=== PATIENT | female | born 1995 | race American Indian/Alaskan Native ===

== ENCOUNTER 2019-05-19 19:51 | Inpatient (IN) | payer MEDICAID ==
[2019-05-20] MEDS ORDERED: XYLOCAINE 2% INFILTRATI ONE (00:33)
[2019-05-20] MEDS ORDERED: BRETHINE SUB-Q PRN (00:33)
[2019-05-20] MEDS ORDERED: SUBLIMAZE IV PRN (00:33)
[2019-05-20] MEDS ORDERED: AMPICILLIN/NS 2 GM/100 ML 2 GM/100 ML BAG IV ONE ×2 (00:37→09:30)
--- NOTE | 2019-05-20 00:51 | History and Physical Report ---
History of Present Illness Date of examination: 05/20/19 Date of admission: 05/19/19 19:51 Chief complaint: Here for induction of labor. History of present illness: 24 year old presents for scheduled induction of labor due to class 3 obesity. Patient reports active movement. She denies leaking of fluid or vaginal bleeding. Patient received care at [facility]. records are not available. LMP 08/14/18. EDC 05/21/19. significant for the following: morbid obesity (comanaged with [facility]). labs are not available. These have been redrawn upon admission. Past History Past Medical History: other (obesity) Past Surgical History: no surgical history [employer] History: denies: abnormal PAP smear, chlamydia, fibroids, gonorrhea, hepatitis B, hepatitis C, HIV, syphilis, trichomonas Family/Genetic History: diabetes, hypertension Social history: single, lives with family, full code. denies: smoking, alcohol abuse, prescription drug abuse, IV drug use - Obstetrical History Expected Date of Delivery: 05/21/19 Actual Gestation: 39 Week(s) 6 Day(s) : 1 Para: 0 Hx # Term Pregnancies: 1 Number of Pregnancies: 0 Spontaneous Abortions: 0 Induced : 0 Number of Living Children: 0 Medications and Allergies Allergies Allergy/AdvReac Type Severity Reaction Status Date / Time No Known Allergies Allergy Unverified 05/20/19 00:59 Active Meds: Active Medications Ephedrine Sulfate (Ephedrine Sulfate) 10 mg IV Q2M PRN PRN Reason: Hypotension Fentanyl (Sublimaze) 100 mcg IV Q2H PRN PRN Reason: Labor Pain Oxytocin/Sodium Chloride (Pitocin/Ns 20 Unit/1000ml Drip) 20 units in 1,000 mls @ 125 mls/hr IV DIRECT MAUDE Lactated Ringer's (Lactated Ringers) 1,000 mls @ 125 mls/hr IV DIRECT MAUDE Ampicillin Sodium (Ampicillin/Ns 2 Gm/100 Ml) 2 gm in 100 mls @ 100 mls/hr IV ONCE ONE; Protocol Stop: 05/20/19 01:36 Ampicillin Sodium (Ampicillin/Ns 1 Gm/50 Ml) 1 gm in 50 mls @ 100 mls/hr IV Q4HR MAUDE; Protocol Lidocaine (Xylocaine 2%) 20 ml INFILTRATI ONCE ONE Stop: 05/20/19 00:34 Terbutaline Sulfate (Brethine) 0.25 mg SUB-Q ONCE PRN PRN Reason: Hyperstimulation/Hypertonicity Review of Systems Eyes: no blurred vision Ears, nose, mouth and throat: no headache Cardiovascular: no edema, no shortness of breath Integumentary: no pruritis, no sores, no lesions Endocrine: no polyphagia, no deepening of the voice - Vital Signs Vital signs: Vital Signs Pulse BP 113 H 131/67 05/19/19 20:42 05/19/19 20:42 Temp Pulse Resp BP Pulse Ox 99.1 F 113 H 16 131/67 05/19/19 21:56 05/19/19 21:56 05/19/19 21:56 05/19/19 21:56 - Physical Exam Cardiovascular: Regular rate, Normal S1, Normal S2 Lungs: Positive: Clear to auscultation Abdomen: Positive: normal appearance, soft. Negative: distention, tenderness, guarding, rigidity Genitourinary (Female): Positive: normal external genitalia, normal perenium. Negative: perineal/vulvar lesions Uterus: Positive: enlarged Anus/Rectum: Positive: normal perianal skin Extremities: Positive: normal, tenderness, edema - Obstetrical FHR: category 1 Uterine Contraction Monitor Mode: External Cervical Dilatation: 0.5 Cervical Effacement Percentage: 30 station: -4 Uterine Contraction Pattern: Absent Results All other labs normal. Assessment and Plan A: at 39 weeks, 6 days gestation. Class 3 obesity. GBS unknown. No labs available. P: Admit. Cervidil cervical ripening, followed by Pitocin induction of labor. GBS prophylaxis. EFM. Obtain records. Redraw labs. Discussed with patient risks and benefits of Cervidil cervical ripening and Pitocin induction of labor. Patient consented to Cervidil cervical ripening and Pitocin induction of labor.
[2019-05-20] MEDS ORDERED: PITOCin/NS 20 UNIT/1000ML DRIP 20 UNITS/1,000 ML BAG IV SCH (01:00)
[2019-05-20] MEDS ORDERED: CERVIDIL VG ONE ×2 (01:22→18:24)
--- NOTE | 2019-05-20 01:38 | Ultrasound Report ---
US OB follow up INDICATION / CLINICAL INFORMATION: EDC, EGA, EFW, presentation, location of placenta. COMPARISON: None available. FINDINGS: Viable single intrauterine gestation in the cephalic presentation. heart rate 135 bpm The grade 1 placenta is anterior and free of the os. ABBY is 11. measurements: BPD 9.2 equal to 37 weeks 1 day Head circumference 34 equal to 39 weeks 1 day Abdominal circumference 33 equal to 37 weeks 0 day Femur length 7.5 equals to 38 weeks 3 days Estimated body weight 3244 g. IMPRESSION: 1. Viable 3244 g 38 week fetus. Signer Name: Gary Friend MD Signed: 05/20/2019 1:34 AM Workstation Name: [id number]
[2019-05-20 02:15] LABS: Hematocrit 28.7 % (30.3-42.9); Hemoglobin 9.3 gm/dl (10.1-14.3); Mean Corpuscular HGB Conc 33 % (30-34); Mean Corpuscular Volume 77 fl (79-97); Platelet Count 281 K/mm3 (140-440); Red Blood Count 3.73 M/mm3 (3.65-5.03); Red Cell Distribution Width 16.6 % (13.2-15.2)
[2019-05-20 02:47] LABS: Hepatitis C Virus Antibody Non-Reactive (NonReactive)
--- NOTE | 2019-05-20 04:07 | Event Note ---
Date: 05/20/19 Cervidil 10 mg vaginal insert placed in posterior fornix of vagina.
[2019-05-20] MEDS ORDERED: AMPICILLIN/NS 1 GM/50 ML 1 GM/50 ML BAG IV SCH (04:42)
[2019-05-20] MEDS: LACTATED RINGERS 1,000 ML IV SCH (09:32)
[2019-05-20] MEDS: AMPICILLIN/NS 1 GM/50 ML 1 GM/50 ML BAG IV SCH (15:05)
--- NOTE | 2019-05-20 16:25 | Event Note ---
Cervidil removed from vagina at 16:00. Plan to [address] another cervidil this evening. Cervix FT/thick/high/soft.
--- NOTE | 2019-05-21 08:39 | Progress Note ---
Assessment and Plan A: at 40 weeks gestation. Class 3 obesity. GBS unknown. P: Cervidil was removed from posterior fornix of vagina at 08:30 today. Plan is to start Pitocin in a few hours for induction of labor. Patient has been informed of risks and benefits of Pitocin induction of labor and she has consented to Pitocin induction of labor. GBS prophylaxis. Continuous EFM. Subjective - Subjective Date of service: 05/21/19 Principal diagnosis: at 40 weeks gestation; class 3 obesity Interval history: Labor is being induced due to class 3 obesity. Today patient is 40 weeks gestation. Cervidil removed from posterior fornix of vagina at 08:30. Patient denies vaginal bleeding or leaking of fluid. Patient reports: movement normal, contractions (patient reports irregular mild contractions), no new complaints, no loss of fluid, no vaginal bleeding Objective - Vital Signs Vital Signs: Vital Signs - 12hr 05/20/19 05/20/19 21:25 22:42 Temperature 98.2 F Pulse Rate 102 H Blood Pressure 126/68 - Exam Abdomen: Present: normal appearance, soft. Absent: distention, tenderness, guarding, rigidity Uterus: Present: normal, fundal height above umbilicus. Absent: tenderness FHR: category 1 Uterine Contraction Monitor Mode: External Cervical Dilatation: 1.5 Cervical Effacement Percentage: 50 station: -4 Uterine Contraction Pattern: Irregular Uterine Contraction Intensity: Mild Extremities: normal - Labs Labs: Abnormal Labs 05/20/19 01:34 Hgb 9.3 L Hct 28.7 L MCV 77 L MCH 25 L RDW 16.6 H Laboratory Results - last 24 hr 05/20/19 01:34 RPR Nonreactive
[2019-05-21] MEDS ORDERED: PITOCin/NS 30 UNIT/500ML 30 UNITS/500 ML BAG IV SCH (11:30)
--- NOTE | 2019-05-21 19:36 | Event Note ---
Date: 05/21/19 SVE .
[2019-05-22] MEDS: AMPICILLIN/NS 1 GM/50 ML 1 GM/50 ML BAG IV SCH ×2 (02:00→09:47)
--- NOTE | 2019-05-22 13:44 | Progress Note ---
Assessment and Plan - Patient Problems (1) 40 weeks gestation of Onset Date: 05/22/19 Current Visit: Yes Status: Acute Plan to address problem: A: IUP @ 40 1/7 weeks Morbid Obesity P: Continue with pitocin induction of labor (2) Morbid obesity with BMI of 50.0-59.9, adult Onset Date: 05/22/19 Current Visit: Yes Status: Acute Subjective - Subjective Date of service: 05/22/19 Principal diagnosis: IUP @ 40 1/7 weeks; Morbid obesity Interval history: Pt is a 24yo BF EDC 05/21/19; EGA 40 1/7 presented for induction of labor - currently on Day 3. She received cervidil and low dose pitocin and is now dilated 3cm. records are available and GBS is Negative. Patient reports: movement normal, contractions (patient reports irregular mild contractions), no new complaints, no loss of fluid, no vaginal bleeding Objective - Vital Signs Vital Signs: Vital Signs - 12hr 05/22/19 05/22/19 04:50 07:40 Temperature 98.8 F Pulse Rate 86 88 Respiratory 18 Rate Blood Pressure 117/77 116/74 - Exam Abdomen: Present: normal appearance, soft Uterus: Present: normal FHR: category 1 Uterine Contraction Monitor Mode: External Cervical Dilatation: 3 (per nurse) Cervical Effacement Percentage: 50 (per nurse) station: -3 Uterine Contraction Pattern: Irregular Uterine Tone Measurement Phase: Contraction Uterine Contraction Intensity: Mild - Labs Labs: Abnormal Labs 05/20/19 01:34 Hgb 9.3 L Hct 28.7 L MCV 77 L MCH 25 L RDW 16.6 H Laboratory Tests 05/20/19 05/20/19 05/20/19 01:34 01:34 01:34 WBC 10.5 RBC 3.73 Hgb 9.3 L Hct 28.7 L MCV 77 L MCH 25 L MCHC 33 RDW 16.6 H Plt Count 281 RPR Nonreactive Hep Bs Antigen Hepatitis C Antibody HIV 1&2 Antibody Rapid HIV P24 Antigen Rubella IgG Antibody Blood Type O POSITIVE Antibody Screen Negative 05/20/19 05/20/19 05/20/19 01:34 01:34 01:34 WBC RBC Hgb Hct MCV MCH MCHC RDW Plt Count RPR Hep Bs Antigen Non-reactive Hepatitis C Antibody Non-reactive HIV 1&2 Antibody Rapid Non react HIV P24 Antigen Non react Rubella IgG Antibody Immune Blood Type Antibody Screen
[2019-05-22] MEDS ORDERED: STADOL IV PRN (13:47)
[2019-05-22] MEDS ORDERED: PITOCin/NS 30 UNIT/500ML 30 UNITS/500 ML BAG IV SCH (13:49)
[2019-05-22] MEDS: LACTATED RINGERS 1,000 ML IV SCH ×3 (14:25→23:55)
[2019-05-22] MEDS: SUBLIMAZE IV PRN ×2 (16:15→21:01)
[2019-05-22] MEDS: TYLENOL PO PRN (19:58)
[2019-05-22] MEDS ORDERED: NARCAN 2 MG/2 ML IV PRN (23:43)
--- NOTE | 2019-05-22 23:43 | Anesthesia Consultation ---
Anesthesia Consult and Med Hx Date of service: 05/22/19 - Airway Anesthetic Teeth Evaluation: Good ROM Head & Neck: Adequate Mental/Hyoid Distance: Adequate Mallampati Class: Class II Intubation Access Assessment: Probably Good - Pulmonary Exam CTA: Yes - Cardiac Exam Cardiac Exam: RRR - Pre-Operative Health Status ASA Pre-Surgery Classification: ASA3 Proposed Anesthetic Plan: Epidural - Pulmonary Hx Asthma: No COPD: No Hx Pneumonia: No - Cardiovascular System Hx Hypertension: No - Central Nervous System Hx Seizures: No Hx Psychiatric Problems: No - Endocrine Hx Renal Disease: No Hx End Stage Renal Disease: No Hx Hypothyroidism: No Hx Hyperthyroidism: No - Hematic Hx Anemia: No Hx Sickle Cell Disease: No - Other Systems Hx Alcohol Use: No Hx Obesity: Yes
[2019-05-22] MEDS ORDERED: fentaNYL-BUPIV 2 MCG/ML-0.125% 200 MCG/100 ML BAG EPIDURAL SCH (23:45)
[2019-05-23] MEDS ORDERED: BICITRA PO ONE (02:07)
[2019-05-23] MEDS ORDERED: REGLAN IV ONE (02:07)
[2019-05-23] MEDS ORDERED: PEPCID IV ONE (02:07)
[2019-05-23] MEDS ORDERED: ceFAZolin 3 GM in NACL 0.9% 100 ML IV NR (02:15)
[2019-05-23] MEDS ORDERED: DEXMEDETOMIDINE IV ONE (02:17)
--- NOTE | 2019-05-23 02:17 | Progress Note ---
Assessment and Plan - Patient Problems (1) 40 weeks gestation of Onset Date: 05/22/19 Current Visit: Yes Status: Acute Plan to address problem: A: IUP @ 40 2/7 weeks Morbid Obesity Failed induction of labor P: Will proceed with a Primary C Section (2) Morbid obesity with BMI of 50.0-59.9, adult Onset Date: 05/22/19 Current Visit: Yes Status: Chronic Subjective - Subjective Date of service: 05/23/19 Principal diagnosis: IUP @ 40 2/7 weeks; Morbid obesity Interval history: Pt is a 24yo BF EDC 05/21/19; EGA 40 2/7 presented for induction of labor - currently on Day 3. She received cervidil followed by pitocin, and still unchanged post epidural. Pt desires to proceed with a C Section for delivery. Patient reports: loss of fluid, movement normal, contractions (patient reports irregular mild contractions), no new complaints, no vaginal bleeding Objective - Vital Signs Vital Signs: Vital Signs - 12hr 05/22/19 05/22/19 05/22/19 14:24 16:12 16:14 Temperature 98.7 F Pulse Rate 87 82 Respiratory 18 Rate Blood Pressure 114/66 117/65 Blood Pressure [Left] O2 Sat by Pulse Oximetry 05/22/19 05/22/19 05/22/19 17:15 18:16 19:15 Temperature Pulse Rate 97 H 95 H 105 H Respiratory Rate Blood Pressure 108/62 119/75 117/74 Blood Pressure [Left] O2 Sat by Pulse Oximetry 05/22/19 05/22/19 05/22/19 19:41 19:46 19:48 Temperature 98.8 F Pulse Rate 102 H 100 H 104 H Respiratory 18 Rate Blood Pressure 115/67 Blood Pressure 115/67 [Left] O2 Sat by Pulse 100 100 Oximetry 05/22/19 05/22/19 05/22/19 19:53 19:58 20:02 Temperature Pulse Rate 92 H 91 H 92 H Respiratory 18 Rate Blood Pressure 111/52 Blood Pressure [Left] O2 Sat by Pulse 100 100 Oximetry 05/22/19 05/22/19 05/22/19 20:03 20:08 20:13 Temperature Pulse Rate 85 89 97 H Respiratory Rate Blood Pressure Blood Pressure [Left] O2 Sat by Pulse 100 100 100 Oximetry 05/22/19 05/22/1919 20:18 20:23 20:28 Temperature Pulse Rate 114 H 96 H 101 H Respiratory Rate Blood Pressure Blood Pressure [Left] O2 Sat by Pulse 98 99 97 Oximetry 05/22/19 05/22/19 05/22/19 20:33 20:38 20:43 Temperature Pulse Rate 96 H 94 H 108 H Respiratory Rate Blood Pressure Blood Pressure [Left] O2 Sat by Pulse 98 99 100 Oximetry 05/22/19 05/22/19 05/22/19 20:48 20:53 20:58 Temperature Pulse Rate 108 H 107 H 108 H Respiratory Rate Blood Pressure Blood Pressure [Left] O2 Sat by Pulse 100 100 100 Oximetry 05/22/19 05/22/19 05/22/19 21:01 21:03 21:08 Temperature Pulse Rate 110 H 100 H 105 H Respiratory 18 Rate Blood Pressure 111/53 Blood Pressure [Left] O2 Sat by Pulse 100 100 Oximetry 05/22/19 05/22/19 05/22/19 21:13 21:18 21:23 Temperature Pulse Rate 108 H 105 H 91 H Respiratory Rate Blood Pressure Blood Pressure [Left] O2 Sat by Pulse 100 100 100 Oximetry 05/22/19 05/22/19 05/22/19 21:28 21:31 21:33 Temperature Pulse Rate 105 H 105 H 107 H Respiratory Rate Blood Pressure 106/53 Blood Pressure [Left] O2 Sat by Pulse 100 100 Oximetry 05/22/19 05/22/19 05/22/19 21:38 21:39 21:43 Temperature Pulse Rate 111 H 112 H 110 H Respiratory Rate Blood Pressure Blood Pressure [Left] O2 Sat by Pulse 100 63 L 100 Oximetry 05/22/19 05/22/19 05/22/19 21:48 22:01 22:06 Temperature Pulse Rate 107 H 115 H Respiratory 18 Rate Blood Pressure Blood Pressure [Left] O2 Sat by Pulse 100 100 Oximetry 05/22/19 05/22/19 05/22/19 22:11 22:16 22:21 Temperature Pulse Rate 111 H 109 H 105 H Respiratory Rate Blood Pressure Blood Pressure [Left] O2 Sat by Pulse 99 100 100 Oximetry 05/22/19 05/22/19 05/22/19 22:26 22:31 22:32 Temperature Pulse Rate 108 H 105 H 108 H Respiratory Rate Blood Pressure 127/57 Blood Pressure [Left] O2 Sat by Pulse 100 98 Oximetry 05/22/19 05/22/19 05/22/19 22:36 22:41 22:46 Temperature Pulse Rate 106 H 105 H 96 H Respiratory Rate Blood Pressure Blood Pressure [Left] O2 Sat by Pulse 99 100 100 Oximetry 05/22/19 05/22/19 05/22/19 22:51 22:56 23:01 Temperature Pulse Rate 110 H 113 H 98 H Respiratory 18 Rate Blood Pressure 127/61 Blood Pressure [Left] O2 Sat by Pulse 100 100 100 Oximetry 05/22/19 05/22/19 05/22/19 23:06 23:11 23:16 Temperature Pulse Rate 87 103 H 102 H Respiratory Rate Blood Pressure Blood Pressure [Left] O2 Sat by Pulse 99 97 95 Oximetry 05/22/19 05/22/19 05/22/19 23:21 23:26 23:31 Temperature Pulse Rate 116 H 92 H 101 H Respiratory Rate Blood Pressure 110/66 Blood Pressure [Left] O2 Sat by Pulse 97 97 98 Oximetry 05/22/19 05/22/19 05/22/19 23:36 23:41 23:48 Temperature Pulse Rate 93 H 105 H 113 H Respiratory Rate Blood Pressure Blood Pressure [Left] O2 Sat by Pulse 97 99 100 Oximetry 05/22/19 05/22/19 05/22/19 23:51 23:53 23:55 Temperature Pulse Rate 113 H 125 H 116 H Respiratory Rate Blood Pressure 126/66 126/64 134/71 Blood Pressure [Left] O2 Sat by Pulse 100 Oximetry 05/22/19 05/22/19 05/22/19 23:57 23:58 23:59 Temperature Pulse Rate 118 H 116 H 110 H Respiratory Rate Blood Pressure 121/69 122/64 Blood Pressure [Left] O2 Sat by Pulse 99 Oximetry 05/23/19 05/23/19 05/23/19 00:01 00:03 00:05 Temperature Pulse Rate 117 H 121 H 116 H Respiratory 18 Rate Blood Pressure 128/66 113/59 125/63 Blood Pressure [Left] O2 Sat by Pulse 99 Oximetry 05/23/19 05/23/19 05/23/19 00:07 00:08 00:09 Temperature Pulse Rate 122 H 123 H 122 H Respiratory Rate Blood Pressure 123/59 124/59 Blood Pressure [Left] O2 Sat by Pulse 98 Oximetry 05/23/19 05/23/19 05/23/19 00:11 00:13 00:15 Temperature Pulse Rate 120 H 117 H 129 H Respiratory Rate Blood Pressure 122/59 121/56 136/60 Blood Pressure [Left] O2 Sat by Pulse 99 Oximetry 05/23/19 05/23/19 05/23/19 00:16 00:17 00:18 Temperature Pulse Rate 101 H 103 H 113 H Respiratory Rate Blood Pressure 124/61 Blood Pressure [Left] O2 Sat by Pulse 77 L 99 Oximetry 05/23/19 05/23/19 05/23/19 00:19 00:21 00:23 Temperature Pulse Rate 110 H 107 H 119 H Respiratory Rate Blood Pressure 114/67 118/72 126/72 Blood Pressure [Left] O2 Sat by Pulse 100 Oximetry 05/23/19 05/23/19 05/23/19 00:25 00:27 00:28 Temperature Pulse Rate 114 H 123 H 126 H Respiratory Rate Blood Pressure 133/70 137/74 Blood Pressure [Left] O2 Sat by Pulse 100 Oximetry 05/23/19 05/23/19 05/23/19 00:29 00:31 00:33 Temperature Pulse Rate 123 H 120 H 102 H Respiratory Rate Blood Pressure 134/71 137/64 127/56 Blood Pressure [Left] O2 Sat by Pulse 100 Oximetry 05/23/19 05/23/19 05/23/19 01:12 01:15 01:17 Temperature Pulse Rate 108 H 110 H 109 H Respiratory Rate Blood Pressure 129/64 Blood Pressure [Left] O2 Sat by Pulse 100 100 Oximetry 05/23/19 05/23/19 05/23/19 01:19 01:22 01:27 Temperature Pulse Rate 121 H 117 H 113 H Respiratory Rate Blood Pressure 131/65 Blood Pressure [Left] O2 Sat by Pulse 99 99 Oximetry 05/23/19 05/23/19 05/23/19 01:32 01:35 01:37 Temperature Pulse Rate 113 H 113 H 98 H Respiratory Rate Blood Pressure 112/57 Blood Pressure [Left] O2 Sat by Pulse 100 99 Oximetry 05/23/19 05/23/19 05/23/19 01:39 01:41 01:42 Temperature Pulse Rate 116 H 104 H Respiratory Rate Blood Pressure 120/80 115/59 Blood Pressure [Left] O2 Sat by Pulse 84 100 Oximetry 05/23/19 05/23/1919 01:47 01:52 01:54 Temperature Pulse Rate 133 H 107 H 94 H Respiratory Rate Blood Pressure 125/68 Blood Pressure [Left] O2 Sat by Pulse 100 100 Oximetry 05/23/19 05/23/19 05/23/19 01:57 02:02 02:07 Temperature Pulse Rate 113 H 104 H 101 H Respiratory Rate Blood Pressure Blood Pressure [Left] O2 Sat by Pulse 100 100 100 Oximetry - Exam Abdomen: Present: normal appearance FHR: category 1 Uterine Contraction Monitor Mode: Internal Uterine Contraction Pattern: Regular Uterine Tone Measurement Phase: Contraction Uterine Contraction Intensity: Strong/Firm - Labs Labs: Abnormal Labs 05/20/19 01:34 Hgb 9.3 L Hct 28.7 L MCV 77 L MCH 25 L RDW 16.6 H Laboratory Tests 05/20/19 05/20/19 05/20/19 01:34 01:34 01:34 WBC 10.5 RBC 3.73 Hgb 9.3 L Hct 28.7 L MCV 77 L MCH 25 L MCHC 33 RDW 16.6 H Plt Count 281 RPR Nonreactive Hep Bs Antigen Hepatitis C Antibody HIV 1&2 Antibody Rapid HIV P24 Antigen Rubella IgG Antibody Blood Type O POSITIVE Antibody Screen Negative 05/20/19 05/20/19 05/20/19 01:34 01:34 01:34 WBC RBC Hgb Hct MCV MCH MCHC RDW Plt Count RPR Hep Bs Antigen Non-reactive Hepatitis C Antibody Non-reactive HIV 1&2 Antibody Rapid Non react HIV P24 Antigen Non react Rubella IgG Antibody Immune Blood Type Antibody Screen
--- NOTE | 2019-05-23 02:35 | Anesthesia Day of Surgery ---
Anesthesia Day of Surgery - Day of Surgery Patient Examined: Yes Patient H&P Reviewed: Yes Patient is NPO: No
[2019-05-23] MEDS: LACTATED RINGERS 1,000 ML IV SCH (02:49)
[2019-05-23] MEDS ORDERED: LACTATED RINGERS 1,000 ML IV SCH (03:00)
[2019-05-23] MEDS ORDERED: PITOCin/NS 20 UNIT/1000ML DRIP 20 UNITS/1,000 ML BAG IV SCH ×2 (03:00→05:00)
[2019-05-23] MEDS ORDERED: NACL 0.9% IR ONE (03:15)
[2019-05-23] MEDS ORDERED: WATER FOR IRRIG STERILE IR ONE (03:15)
[2019-05-23] MEDS ORDERED: DIPRIVAN 10 MG/ML IV ONE ×2 (03:21→03:45)
[2019-05-23] MEDS ORDERED: KETALAR ONE (03:31)
[2019-05-23] MEDS ORDERED: DECADRON ONE (03:52)
[2019-05-23] MEDS ORDERED: ZOFRAN ONE (03:52)
[2019-05-23] MEDS ORDERED: QUELICIN ONE (03:52)
[2019-05-23] MEDS ORDERED: XYLOCAINE MPF 2% ONE (03:52)
[2019-05-23] MEDS ORDERED: DILAUDID ONE (03:58)
--- NOTE | 2019-05-23 04:15 | Operative Report ---
Operative Report Operative Report: Date of procedure: 05/23/2019 Pre-operative diagnosis: 1. Intrauterine at 40-2/7 weeks 2. Morbid obesity 3. Failed induction of labor Post-operative diagnosis: Same Procedure name(s): Primary low transverse section Surgeon: Jovani Mckoy MD Cassandra Developer: None Anesthesia: Gen. anesthesia after failed epidural by Jung Solis CRNA EBL: 800 mL's Findings: A 3803 g female infant Apgars 8 at 1 minute and 9 at 5 minutes. Clear amniotic fluid. Nuchal cord 1. Normal uterus. Normal tubes and ovaries bilaterally. Procedure: After the patient was prepped and draped in usual sterile fashion, and after general anesthesia was administered, the skin knife was used to make a transverse skin incision. The incision was excised down to layer of the fascia, which was nicked in the midline and extended laterally using the Bovie cautery. The rectus muscles were dissected off the rectus fascia both superiorly and inferiorly. The rectus bellies in the midline, and the peritoneum was entered under direct visualization. The peritoneal incision was extended super iorly and inferiorly. A bladder flap was created and the bladder blade was then placed. The uterus was scored in a curvilinear linear fashion, entered in the midline revealing clear amniotic fluid. The infant's head was delivered onto the surgical field, nuchal cord 1 easily reduced and the oropharynx and nasopharynx were bulb suctioned. The rest of the 's body was delivered, cord was doubly clamped and cut and the was handed to the waiting respiratory team. Cord blood was then obtained. The placenta was manually removed from the uterus, and the uterus removed from its normal anatomical position. After gentle uterine lavage, the incision was inspected and found to be without extensions. It was then closed in 2 layers using 0 Vicryl suture in a running interlocking fashion, the second layer imbricating the first. After good hemostasis was achieved, copious amounts or irrigation was performed, and the gutters were suctioned free of blood and blood clots. Tisseel sealant was sprayed across the uterine incision. The uterus was then returned to its normal anatomical position, and after excellent hemostasis assured, the peritoneum was re-approximated using 3-0 Vicryl suture in a running interlocking fashion, and then the rectus muscles were re-approximated using 3-0 Vicryl suture in a [id number] configuration. The fascia was then re-approximated using 0 Vicryl suture in running interlocking fashion. The subcutaneous layer was made hemostatic using Bovie cautery, the Tisseel sealant was sprayed across the fascial incision and the skin edges re-approximated using 4-0 Vicryl suture in a sub-cuticular fashion. Patient tolerated the procedure well was transported to recovery in stable condition.
[2019-05-23] MEDS ORDERED: NARCAN 0.4 MG/1 ML IV PRN ×2 (04:27→04:40)
[2019-05-23] MEDS ORDERED: LANSINOH TP PRN (04:27)
[2019-05-23] MEDS ORDERED: SENOKOT PO PRN (04:27)
[2019-05-23] MEDS ORDERED: MYLICON PO PRN (04:27)
[2019-05-23] MEDS ORDERED: NORCO 5/325 PO PRN (04:27)
[2019-05-23] MEDS ORDERED: TORADOL IV PRN (04:27)
[2019-05-23] MEDS ORDERED: ZOFRAN IV PRN ×2 (04:27→04:40)
[2019-05-23] MEDS ORDERED: MILK OF MAGNESIA PO PRN (04:27)
[2019-05-23] MEDS ORDERED: TUCKS PAD TP PRN (04:27)
[2019-05-23] MEDS ORDERED: PHENERGAN PO PRN (04:40)
[2019-05-23] MEDS ORDERED: DILAUDID IV PRN ×2 (04:40)
[2019-05-23] MEDS ORDERED: PHENERGAN PR PRN (04:40)
[2019-05-23] MEDS ORDERED: NUBAIN IV PRN (04:41)
[2019-05-23] MEDS ORDERED: D5LR 1,000 ML IV SCH (05:00)
[2019-05-23] MEDS ORDERED: SODIUM CHLORIDE FLUSH SYRINGE 10 ML IV NR ×2 (05:00)
[2019-05-23] MEDS: FEOSOL PO SCH (10:20)
[2019-05-23] MEDS: PRENATAL VITAMIN PO SCH (10:20)
[2019-05-23] MEDS: TYLENOL PO SCH ×3 (12:04→23:30)
[2019-05-23] MEDS: ANCEF/NS 1 GM/50 ML 1 GM/50 ML BAG IV SCH ×2 (12:31→20:01)
[2019-05-23] MEDS: TORADOL IV SCH ×3 (12:31→23:29)
--- NOTE | 2019-05-23 14:15 | Post Anesthesia Evaluation ---
- Post Anesthesia Evaluation Patient Participated: Yes Airway Patent: Yes Stable Respiratory Function: Yes Nausea/Vomiting: No Temp > 96.8F: Yes Pain Manageable: Yes Adequeate Hydration: Yes Anesthesia Complications: No Block Receding Appropriately: Yes
[2019-05-23] MEDS: TYLENOL PO PRN (17:03)
[2019-05-23 17:41] LABS: Hematocrit 23.9 % (30.3-42.9); Hemoglobin 7.9 gm/dl (10.1-14.3)
[2019-05-23] MEDS ORDERED: BOOSTRIX IM ONE (20:30)
[2019-05-24] MEDS: TYLENOL PO SCH ×4 (05:31→23:12)
[2019-05-24] MEDS: TORADOL IV SCH ×3 (05:31→18:00)
[2019-05-24] MEDS ORDERED: M-M-R II VACCINE SUB-Q ONE (06:00)
--- NOTE | 2019-05-24 08:39 | Progress Note ---
Assessment and Plan - Patient Problems (1) 40 weeks gestation of Onset Date: 05/22/19 Current Visit: Yes Status: Resolved (2) Morbid obesity with BMI of 50.0-59.9, adult Onset Date: 05/22/19 Current Visit: Yes Status: Chronic (3) Status post Onset Date: 05/24/19 Current Visit: Yes Status: Resolved Plan to address problem: A: S/P C Section - POD #1 Doing well Asymptomatic anemia - stable P: Continue RPOC Anticipate discharge in 24-48hrs Subjective - Subjective Date of service: 05/24/19 Principal diagnosis: s/p C Section - POD #1 Interval history: Pt is feeling well without complaints. Bleeding improved. She is tolerating a reg diet without nausea or vomiting, ambulating and voiding without difficulty. Patient reports: appetite normal, voiding normally, pain well controlled, flatus, ambulating normally, no dizzy ambulation, no nauseated : doing well, nursing well, bottle feeding Objective - Vital Signs Latest vital signs: Vital Signs Temp Pulse Resp BP BP Pulse Ox 05/24/19 00:25 98.0 F 18 103/56 05/23/19 20:00 98.7 F 77 18 112/74 05/23/19 17:01 98.1 F 90 18 99/63 05/23/19 12:14 98.7 F 78 20 140/89 97 Intake and Output 05/23/19 05/24/19 05/24/19 22:59 06:59 14:59 Intake Total 660 Output Total 900 Balance -240 Intake: Oral 360 Intake, Free Water 300 Output: Urine 900 Indwelling Catheter 100 Void 800 Other: Total, Intake Amount 360 Total, Output Amount 900 # Voids Void 1 # Bowel Movements 1 - Exam Breasts: Present: deferred Abdomen: Present: normal appearance, soft Uterus: Present: normal, firm, fundal height below umbilicus Extremities: Present: normal Incision: Present: normal, dry, intact, dressed - Labs Labs: Abnormal lab results 05/23/19 Range/Units 17:24 Hgb 7.9 L (10.1-14.3) gm/dl Hct 23.9 L (30.3-42.9) % Laboratory Tests 05/20/19 05/20/19 05/20/19 01:34 01:34 01:34 WBC 10.5 RBC 3.73 Hgb 9.3 L Hct 28.7 L MCV 77 L MCH 25 L MCHC 33 RDW 16.6 H Plt Count 281 RPR Nonreactive Hep Bs Antigen Hepatitis C Antibody HIV 1&2 Antibody Rapid HIV P24 Antigen Rubella IgG Antibody Blood Type O POSITIVE Antibody Screen Negative 05/20/19 05/20/19 05/20/19 01:34 01:34 01:34 WBC RBC Hgb Hct MCV MCH MCHC RDW Plt Count RPR Hep Bs Antigen Non-reactive Hepatitis C Antibody Non-reactive HIV 1&2 Antibody Rapid Non react HIV P24 Antigen Non react Rubella IgG Antibody Immune Blood Type Antibody Screen 05/23/19 17:24 WBC RBC Hgb 7.9 L Hct 23.9 L MCV MCH MCHC RDW Plt Count RPR Hep Bs Antigen Hepatitis C Antibody HIV 1&2 Antibody Rapid HIV P24 Antigen Rubella IgG Antibody Blood Type Antibody Screen
[2019-05-24] MEDS: IBUPROFEN PO PRN (10:03)
[2019-05-24] MEDS: PRENATAL VITAMIN PO SCH (10:03)
[2019-05-24] MEDS: PERCOCET 5/325 PO PRN ×2 (10:03→18:13)
[2019-05-24] MEDS: FEOSOL PO SCH (10:08)
[2019-05-25] MEDS: TYLENOL PO SCH ×2 (05:28→12:54)
[2019-05-25 09:04] VITALS: BP 102/48
[2019-05-25] MEDS: PRENATAL VITAMIN PO SCH (09:56)
[2019-05-25] MEDS: FEOSOL PO SCH (09:56)
[2019-05-25] MEDS: IBUPROFEN PO PRN (12:54)
--- NOTE | 2019-05-25 13:47 | Progress Note ---
Assessment and Plan - Patient Problems (1) 40 weeks gestation of Onset Date: 05/22/19 Current Visit: Yes Status: Resolved (2) Morbid obesity with BMI of 50.0-59.9, adult Onset Date: 05/22/19 Current Visit: Yes Status: Chronic (3) Status post Onset Date: 05/24/19 Current Visit: Yes Status: Resolved Plan to address problem: A: S/P C Section - POD #2 Doing well Asymptomatic anemia - stable P: May go home today. Subjective - Subjective Date of service: 05/25/19 Principal diagnosis: s/p C Section - POD #2 Interval history: Pt is feeling well without complaints. She is tolerating a reg diet without nausea or vomiting, ambulating and voiding without difficulty. Patient reports: appetite normal, voiding normally, pain well controlled, flatus, ambulating normally, no dizzy ambulation, no nauseated : doing well, nursing well, bottle feeding Objective - Vital Signs Latest vital signs: Vital Signs Temp Pulse Resp BP Pulse Ox 05/25/19 08:28 98.4 F 88 16 102/48 100 05/25/19 00:08 98.0 F 18 109/62 05/24/19 17:33 98.7 F 84 16 114/59 99 - Exam Breasts: Present: deferred Abdomen: Present: normal appearance, soft Uterus: Present: normal, firm, fundal height below umbilicus Extremities: Present: normal Incision: Present: normal, dry, intact
--- NOTE | 2019-05-25 13:47 | Discharge Summary ---
Providers - Providers Date of Admission: 05/19/19 19:51 Date of discharge: 05/25/19 Attending physician: ROMAN REYNA Primary care physician: ROMAN REYNA Hospitalization Reason for admission: induction of labor, IUP at term, other (Morbid Obesity) Delivery: Procedure: section, primary low transverse Episiotomy: none Laceration: none Incision: normal, dry, intact Other procedures: none complications: none Discharge diagnosis: IUP at term delivered baby: female Hospital course: Pt is a 24yo BF EDC 05/21/19; EGA 40 12/15 who presented for induction of labor per [facility] due to Morbid Obesity. After 3 days of cervidil/pitocin she failed to progress in labor and thus was delivered by an uncomplicated C Section. By POD #2 she was tolerating a reg diet without nausea or vomiting, ambulating and voiding without difficulty. She was therefore discharged to home on POD #2 in stable condition. Condition at discharge: Good Disposition: [id number] TO HOME OR SELFCARE - Discharge Diagnoses (1) 40 weeks gestation of Status: Resolved (2) Morbid obesity with BMI of 50.0-59.9, adult Status: Chronic (3) Status post Status: Resolved Plan - Discharge Medications Prescriptions: Ferrous Sulfate [Feosol 325 MG tab] 325 mg PO BID #60 tablet Ibuprofen [Motrin 800 MG tab] 800 mg PO Q6H PRN #30 tablet PRN Reason: Pain, Mild (1-3) oxyCODONE /ACETAMINOPHEN [Percocet 5/325 mg] 1 tab PO Q6H PRN #30 tablet PRN Reason: Pain, Moderate (4-6) Vit-Fe Fumar-FA [ Vitamin] 1 each PO QDAY #30 tablet - Provider Discharge Summary Activity: routine, no sex for 6 weeks, no heavy lifting 4 weeks, no strenuous exercise Diet: routine Instructions: routine Additional instructions: [] Smoking cessation referral if applicable(refer to patient education folder for contact #) [] Refer to [facility] Booklet Call your doctor immediately for: * Fever > 100.5 * Heavy vaginal bleeding ( >1 pad per hour) * Severe persistent headache * Shortness of breath * Reddened, hot, painful area to leg or breast * Drainage or odor from incision. * Keep incision clean and dry at all times and follow doctor's instructions regarding bathing/showering - Follow up plan Follow up: ROMAN REYNA MD [Primary Care Provider] - 14 Days ELI GOLDSTEIN CNM [Advanced Practice Nurse] - 14 Days
== END 2019-05-25 15:15 | disposition home or self-care (01) | DRG 766 ==
LOC: LD 19:51 → OB 05-23 06:38
PROVIDERS: ADMIT Obstetrics & Gynecology; ATTEND Obstetrics & Gynecology
PROC: 10D00Z1 Extraction of Products of Conception, Low, Open Approach (ICD-10-PCS; principal; 2019-05-23)
PROC: 3E0234Z Introduction of Serum, Toxoid and Vaccine into Muscle, Percutaneous Approach (ICD-10-PCS; 2019-05-24)
DX: O99.214 Obesity complicating childbirth (principal); O61.9 Failed induction of labor, unspecified; E66.01 Morbid (severe) obesity due to excess calories; O69.81X0 Labor and delivery complicated by cord around neck, without compression, not applicable or unspecified; O99.02 Anemia complicating childbirth; D64.9 Anemia, unspecified; Z37.0 Single live birth; Z71.3 Dietary counseling and surveillance; Z82.49 Family history of ischemic heart disease and other diseases of the circulatory system; Z83.3 Family history of diabetes mellitus; Z3A.39 39 weeks gestation of pregnancy; Z23 Encounter for immunization
CPT/HCPCS: 36415; 59200; 76816; 85014; 85018; 85027; 86592; 86706; 86762; 86803; 86850; 86900; 86901; 87806; 90471; 90707; 90715; G0378; C9250; J0290; J0330; J0595; J0690; J1100; J1170; J1885; J2405; J2590; J2704; J2765; J3010; J3490; J7120; J7121